=== PATIENT | female | born 1950 | race Caucasian/White ===

== ENCOUNTER 2020-03-06 06:25 | Day surgery (SDC) | payer MEDICARE, BC ==
[~2020-03-06] VITALS: Ht 162.6 cm; Wt 79.5 kg
[2020-03-06 07:03] LABS: APTT 34.7 SECONDS (22.8-39.4); INR 1.1 (0.85-1.17); PROTIME 14.1 SECONDS (11.6-15.0)
[2020-03-06 07:08] LABS: HEMOGLOBIN 13.7 g/dL (12-16); MCH 29.9 pg (26.0-34.0); MCHC 32.6 g/dL (31.0-37.0); MCV 91.7 fL (80.0-100.0); MEAN PLATELET VOLUME 10.2 fL (7.4-10.4); RBC 4.58 10x6/uL (4.00-5.40); RDW 14.8 % (11.5-14.5); WBC 13.3 10x3/uL (4.8-10.8)
[2020-03-06 08:16] VITALS: Ht 162.6 cm; Wt 79.5 kg
[2020-03-06] MEDS ORDERED: ALENDRONAT70 MG/75 M PO (08:25)
[2020-03-06] MEDS ORDERED: ABILIFY2 MG PO (08:26)
[2020-03-06] MEDS ORDERED: BAYER CHEWABLE81 MG PO (08:26)
[2020-03-06] MEDS ORDERED: LIPITOR80 MG PO (08:26)
[2020-03-06] MEDS ORDERED: CALTRATE+D3 PL1 EACH PO (08:27)
[2020-03-06] MEDS ORDERED: BUSPAR5 MG PO (08:27)
[2020-03-06] MEDS ORDERED: CENTRUM SILVER1 EAC3 PO (08:27)
[2020-03-06] MEDS ORDERED: CLARITIN 10 MG10 MG PO (08:27)
[2020-03-06] MEDS ORDERED: BENADRYL25 MG PO (08:27)
[2020-03-06] MEDS ORDERED: GYNE-LOTRIMIN-745 GM VG (08:28)
[2020-03-06] MEDS ORDERED: COUMADIN4 MG PO (08:28)
[2020-03-06] MEDS ORDERED: CARDIZEM120 MG PO (08:29)
[2020-03-06] MEDS ORDERED: ATIVAN1 MG PO (08:29)
[2020-03-06] MEDS ORDERED: MECLIZINE HCL12.5 MG PO (08:29)
[2020-03-06] MEDS ORDERED: METOPROLOL TART50 MG PO (08:30)
[2020-03-06] MEDS ORDERED: OMEPRAZOLE20 M1 PO (08:30)
[2020-03-06] MEDS ORDERED: TRAZODONE HCL150 MG PO (08:30)
[2020-03-06] MEDS ORDERED: VITAMIN D1000 UNIT PO (08:31)
[2020-03-06] MEDS ORDERED: VIIBRYD10 MG PO (08:31)
--- NOTE | 2020-03-06 12:56 | NUR ---
1210 IV REMOVED AND INSTRUCTIONS GIVEN. 1220 D/C HOME
== END 2020-03-06 12:20 | disposition home or self-care (01) ==
LOC: D.OPS 06:25
PROVIDERS: Anesthesiology; ATTEND Surgery
DX: D12.6 Benign neoplasm of colon, unspecified (principal); I10 Essential (primary) hypertension; I48.0 Paroxysmal atrial fibrillation

== ENCOUNTER → 2020-04-29 20:05 | Outpatient (CLI) | payer MEDICARE, BC ==
[2020-03-06 08:16] VITALS: BMI 30.1
[~2020-04-29 20:05] MED LIST: ABILIFY2 MG PO; ALENDRONAT70 MG/75 M PO; ATIVAN1 MG PO; BAYER CHEWABLE81 MG PO; BENADRYL25 MG PO; BUSPAR5 MG PO; CALTRATE+D3 PL1 EACH PO; CARDIZEM120 MG PO; CENTRUM SILVER1 EAC3 PO; CLARITIN 10 MG10 MG PO; COUMADIN4 MG PO; GAS-X125 M1 PO; GYNE-LOTRIMIN-745 GM VG; LIPITOR80 MG PO; LOVENOX120 MG/0.8 SC; MECLIZINE HCL12.5 MG PO; METOPROLOL TART50 MG PO; NYSTATIN15 GM TOPICAL; OMEPRAZOLE20 M1 PO; TRAZODONE HCL150 MG PO; VIIBRYD10 MG PO; VITAMIN D1000 UNIT PO
== END | disposition home or self-care (01) ==
LOC: D.LABREF 20:05
PROVIDERS: ATTEND Nurse Practitioner
DX: Z20.828 Contact with and (suspected) exposure to other viral communicable diseases (principal)

== ENCOUNTER 2020-05-01 07:30 | Inpatient (IN) | payer MEDICARE, BC ==
[~2020-05-01] VITALS: Ht 162.6 cm; Wt 80.3 kg
[2020-05-01] VITALS (11 sets, daily range): BP systolic 125–150; BP diastolic 60–86; BMI 30.6
--- NOTE | ~2020-05-01 | HEMODYNAMI ---
PATIENT:DEXTER SO MEDICAL RECORD: [id number] : 48 LOCATION:[id number] ADMISSION DATE: 05/01/20 Generatedon:05/07/202011:15 Patient name: DEXTER SO Patient #: [id number] SSN: [id number] : 1950 Date of study: 05/07/2020 Page: Of Hemodynamic Procedure Report Patient Data Patient Demographics Procedure consent was obtained First Name: DEXTER Gender: Female Last Name: SARAY : 1950 Patient #: [id number] Age: 69 year(s) Race: Unknown SSN: [id number] Additional ID: [id number] Contact details [address]: [address] [place] [address] circle State: [place] City: [place] Zip code: [address] Past Medical History Allergies Allergen Reaction Date Comments Reported Other allergy 05/07/2020 PCN, Sulfa,Codeine, morphine, tramadol Admission Admission Data Admission Date: 05/01/2020 Admission Time: 7:30 Arrival Date: 05/07/2020 Arrival Time: 0:00 Admit Source: Other Insurance Payor: Medicare Room #: D.2227 [facility] #: [id number] Height (in.): 63.78 BSA: 1.85 (m2) Height (cm.): 162 BMI: 30.48 (kg/m2) Weight (lbs.): 176.37 Weight (kg.): 80 Lab Results Lab Result Date: 05/07/2020 Lab Result Time: 0:00 Biochemistry Name Units Result Min Max BUN mg/dl 6 -*(----)-- 7 18 Creatinine mg/dl 1 --(--*-)-- 0.6 1.3 eGFR ml/min 58 *-(----)-- 90 120 NONAFRICAN CBC Name Units Result Min Max Hemoglobin g/dl 11 *-(----)-- 13.5 17.5 Procedure Procedure Types Cath Procedure Diagnostic Procedure [facility] w/Coronaries Sedation Charges Moderate Sedation up to 30 minutes Procedure Description Procedure Date Procedure Date: 05/07/2020 Procedure Start Time: 10:42 Procedure End Time: 11:13 Procedure Staff Name Function Lenny Reynaga MD Performing Physician Estrellita Gupta RT Monitor Paz Willoughby RT Scrub Brent Reno RN Nurse Procedure Data Cath Procedure Fluoroscopy Diagnostic fluoroscopy Total fluoroscopy Time: time: 11.8 min 11.8 min Diagnostic fluoroscopy Total fluoroscopy dose: dose: 1043 mGy 1043 mGy Contrast Material Contrast Material Type Amount (ml) Isovue 300 115 Entry Location Entry Primary Successful Side Size Upsize Upsize Entry Closure Jones ccessful Closure Location (Fr) 1 (Fr) 2 (Fr) Remarks Device Remarks Radial Right 6 Fr Mechanical artery Short Compression Femoral Right 5 Fr Exoseal artery Estimated blood loss: 10 ml Diagnostic catheters Device Type Used For End Catheter Placement DIAGNOSTIC Dodge 110cm 5 Procedure Fr catheter ([id number]) DIAGNOSTIC AR MOD 5Fr Procedure Catheter ([id number]) DIAGNOSTIC AR2 MOD 5 Fr Procedure catheter ([id number]) DIAGNOSTIC JR 4 5Fr Procedure catheter ([id number]) DIAGNOSTIC AR2 MOD 5 Fr Procedure catheter ([id number]) Procedure Complications No complications Procedure Medications Medication Administration Route Dosage 0.9% NaCl I.V. 100 ml/hr Oxygen NC 4 l/min Heparin Flush Bag added to field 2 bags (1000units/500ml NS) Lidocaine 2% added to field 20 Radial Cocktail added to field 1 syringe (Verapamil 2mg/Nitro 400mcg/Heparin 1500units) Versed I.V. 1 mg Fentanyl I.V. 50 mcg Radial Cocktail I.A. 1 syringe (Verapamil 2mg/Nitro 400mcg/Heparin 1500units) Fentanyl I.V. 25 mcg Versed I.V. 0.5 mg Versed I.V. 0.5 mg Fentanyl I.V. 25 mcg Hemodynamics Rest BSA: 1.85 (m2) HGB: 11 (g/dl) O2 Consumption: Estimated: 188.24 (ml/min) O2 Cons umption indexed: Estimated:101.75 (ml/min/m) Heart Rate: 95 (bpm) Pressure Samples Time Site Value (mmHg) Purpose Heart Use Rate(bpm) 10:51 LV 98/19,19 Snapshot 91 10:52 AO 100/35(73) Pullback 92 Gradients Valve Time Site Site 2 Mean SEP/DFP Peak To Heart Use 1 (mmHg) (sec/min) Peak Rate (mmHg) (bpm) Aortic 10:52 LV AO 6 21 92 100/35(73) Calculations Valve P-P Mean Valve Index Valve Source Name Gradient Area Flow (cm2) Aortic 6 6 Snapshots Pre Cath Intra NCS Post Cath Vital Signs Time Heart Resp SPO2 etCO2 NIBP (mmHg) Rhythm Pain Sedation Rate (ipm) (%) (mmHg) Status Level (bpm) 10:32:00 98 33 98 0 150/75(102) NSR 0 (11) 10(A) , No pain 10:35:57 94 23 98 0 144/73(106) NSR 0 (11) 10(A) , No pain 10:40:32 93 31 98 0 144/72(94) NSR 0 (11) 10(A) , No pain 10:44:25 95 26 96 0 137/77(104) NSR 0 (11) 10(A) , No pain 10:48:27 94 31 96 0 133/61(86) NSR 0 (11) 10(A) , No pain 10:52:21 103 44 97 0 105/65(83) NSR 0 (11) 10(A) , No pain 10:56:49 91 31 97 0 129/62(90) NSR 0 (11) 9(A) , No pain 11:00:44 90 31 97 0 132/72(96) NSR 0 (11) 9(A) , No pain 11:04:42 90 28 98 0 141/70(101) NSR 0 (11) 9(A) , No pain 11:09:14 89 30 97 0 135/71(100) NSR 0 (11) 10(A) , No pain 11:13:10 87 27 97 0 134/71(91) NSR 0 (11) 10(A) , No pain Medications Time Medication Route Dose Verified Delivered Reason Notes Effectiveness by by 10:30:49 0.9% NaCl I.V. 100 Brent Brent Per ml/hr Shadia ley RN RN 10:31:11 Oxygen NC 4 l/min Brent Brent for low 02 Shadia singh RN RN 10:31:23 Heparin Flush added 2 bags Brent Brent used for Bag to Lorigan Lorigan procedure (1000units/500ml field RN RN NS) 10:31:37 Lidocaine 2% added 20ml Brent Brent for local to vial Lorigan Lorigan anesthetic RN RN 10:31:49 Radial Cocktail added 1 Brent Brent used for (Verapamil to syringe Lorigan Lorigan procedure 2mg/Nitro RN RN 400mcg/Heparin 1500units) 10:36:07 Versed I.V. 1 mg Brent Brent for sedation Shadia Reno RN RN 10:36:16 Fentanyl I.V. 50 mcg Rbent Brent for sedation Shadia Reno RN RN 10:43:20 Radial Cocktail I.A. 1 Brent Lenny for (Verapamil syringe Lorigan Juhi vasodilation 2mg/Nitro SILVANO BARAKAT 400mcg/Heparin 1500units) 10:43:28 Fentanyl I.V. 25 mcg Brent Brent for sedation Shadia Reno RN RN 10:43:36 Versed I.V. 0.5 mg Brent Brent for sedation Shadia Reno RN RN 11:03:39 Versed I.V. 0.5 mg Brent Brent for sedation Shadia Reno RN RN 11:03:51 Fentanyl I.V. 25 mcg Brent Brent for sedation Shadia Reno RN tourist home keeper Log Time Note 9:59:57 Informed consent obtained and on chart 10:00:13 Procedure Status Urgent Heart Cath (IP). 10:00:14 Time tracking: Regular hours (M-F 7:00 - 5:00) 10:00:18 Plan of Care:Hemodynamics will remain stable., Cardiac rhythm will remain stable., Comfort level will be maintained., Respiratory function will remain adequate., Patient/ family verbilizes understanding of procedure., Procedure tolerated without complication., Recovers from procedure without complications.. 10:04:23 Paz JOHNSON(R) sent for patient. Start room use. 10:07:11 Arrival Date: 05/07/2020 12:00:00 AM 10:07:37 Admit Source: Other 10:07:44 Insurance Payor : Medicare 10:07:49 Patient Height : 63.78 inches 10:07:52 Patient Weight : 176.37 lbs 10:08:49 Lab Result : BUN 6 mg/dl 10:08:49 Lab Result : eGFR NONAFRICAN 58 ml/min 10:08:49 Lab Result : Hemoglobin 11 g/dl 10::49 Lab Result : Creatinine 1 mg/dl 10:30:31 Vital chart was started 10:30:49 0.9% NaCl 100 ml/hr I.V. was administered by Brent Reno RN; Per physician; Verbal order read back and verified. 10:31:11 Oxygen 4 l/min NC was administered by Brent Reno RN; for low 02 sats; Verbal order read back and verified. 10:31:23 Heparin Flush Bag (1000units/500ml NS) 2 bags added to field was administered by Brent Reno RN; used for procedure; Verbal order read back and verified. 10:31:37 Lidocaine 2% 20ml vial added to field was administered by Brent Reno RN; for local anesthetic; Verbal order read back and verified. 10:31:49 Radial Cocktail (Verapamil 2mg/Nitro 400mcg/Heparin 1500units) 1 syringe added to field was administered by Brent Reno RN; used for procedure; Verbal order read back and verified. 10:33:32 Patient received from Med/Surg to CCL 2 Alert and oriented. Tansferred to table in Supine position. 10:33:34 Warm blankets applied, and azam hugger turned on for patient comfort. 10:33:35 Correct patient and procedure confirmed by team. 10:33:36 Baseline sample Acquired. 10:33:36 ECG and BP/O2 sat monitors applied to patient. 10:33:44 Rhythm: sinus tachycardia 10:33:46 Full Disclosure recording started 10:33:54 H&P Date Dictated: 05/07/2020 Within 30 days and on chart.. 10:33:56 Pre-procedure instructions explained to patient. 10:33:58 Family in patients room. 10:34:00 Patient NPO since Midnight. 10:34:37 Patient allergic to Other allergyPCN, Sulfa,Codeine, morphine, tramadol 10:34:40 Is the patient allergic to Iodine/contrast media? No. 10:34:41 Was the patient premedicated? Yes 10:34:42 Is patient on blood thinner?Yes 10:34:48 ACC The patient was administered the following blood thiners within the last 24 hours: ACCPlavix 10:34:50 Patient diabetic? No. 10:34:55 Snore? Yes 10:35:00 Sleep apnea? Yes 10:35:05 Patient pain scale 0/10 ?. 10:35:14 IV patent on arrival in left forearm with 0.9% NaCl at [facility]. 10:35:18 Lab results completed and on chart. 10:35:23 Right Radial & Right Groin area was prepped with chlora-prep and draped in sterile fashion 10:35:24 Alarms reviewed by R. N. 10:35:25 Sharps counted by scrub and verified by R.N. 10:35:26 Physician arrived 10:35:27 --------ALL STOP TIME OUT------ 10:35:29 Final Timeout: patient, procedure, and site verified with staff and physician. All members of the team are in agreement. 10:35:44 Right Radial & Right Groin site verified by team. 10:35:48 Fire Safety Assessment: A--An alcohol-based skin anteseptic being used preoperatively., C--Open oxygen or nitrous oxide is being used., D--An ESU, laser, or fiber-optic light is being used. 10:35:52 Physical assessment completed. ASA score P 2 - A patient with mild systemic disease as per Lenny Reynaga MD. 10:35:55 2) 60-89 Mildly reduced kidney function, and other findings (as for stage 1) point to kidney disease. 10:35:59 Maximum allowable contrast dose (3.7 X eGFR X 0.75)160 ml. 10:36:04 Sedation plan: IV Moderate Sedation Medication:Versed, Fentanyl 10:36:07 Versed 1 mg I.V. was administered by Brent Reno RN; for sedation; Verbal order read back and verified. 10:36:09 Use device set Radial Dx or PCI 10:36:16 Fentanyl 50 mcg I.V. was administered by Brent Reno RN; for sedation; Verbal order read back and verified. 10:39:58 Zero performed for pressure channel P1 10:40:01 ACIST Syringe (93201) opened to sterile field. 10:40:01 Medline Cath Pack ([id number]) opened to sterile field. 10:40:02 Bag Decanter () opened to sterile field. 10:40:02 ACIST Hand Control (53870) opened to sterile field. 10:40:03 ACIST Manifold (10904) opened to sterile field. 10:40:04 MBrace Wrist Support ([id number]) opened to sterile field. 10:40:07 EMERALD Guide Wire (782-946) opened to sterile field. 10:40:07 SHEATH 6FR RAIN (1614808) opened to sterile field. 10:40:48 Procedure started. 10:42:24 Local anesthetic to right radial artery with Lidocaine 2% by Lenny Reynaga MD.INITIAL ACCESS ONLY 10:43:05 A 6 Fr Short sheath was inserted into the Right Radial artery 10:43:20 Radial Cocktail (Verapamil 2mg/Nitro 400mcg/Heparin 1500units) 1 syringe I.A. was administered by Lenny Reynaga MD; for vasodilation; Verbal order read back and verified. 10:43:28 Fentanyl 25 mcg I.V. was administered by Brent Reno RN; for sedation; Verbal order read back and verified. 10:43:36 Versed 0.5 mg I.V. was administered by Brent Reno RN; for sedation; Verbal order read back and verified. 10:44:06 A DIAGNOSTIC Dodge 110cm 5 Fr catheter (277763) was advanced over the wire and used for Procedure. 10:46:23 LCA angiography performed. 10:47:34 Catheter removed. 10:48:16 A DIAGNOSTIC AR MOD 5Fr Catheter ([id number]) was advanced over the wire and used for Procedure. 10:52:53 LV angiography performed. 10:52:58 LV gram done using REGAN 10:53:04 EF : 55 % 10:53:05 Catheter removed. 10:53:29 A DIAGNOSTIC AR2 MOD 5 Fr catheter ([id number]) was advanced over the wire and used for Procedure. 10:56:11 Catheter removed. 10:56:30 unable to cannulate vessel 10:56:37 A DIAGNOSTIC JR 4 5Fr catheter ([id number]) was advanced over the wire and used for Procedure. 11:03:39 Versed 0.5 mg I.V. was administered by Brent Reno RN; for sedation; Verbal order read back and verified. 11:03:51 Fentanyl 25 mcg I.V. was administered by Brent Reno RN; for sedation; Verbal order read back and verified. 11:03:56 SHEATH 5FR [place] (OAF849) opened to sterile field. 11:04:03 Local anesthetic to right femoral artery with Lidocaine 2% by Lenny Reynaga MD.ADDITIONAL ACCESS 11:04:13 A 5 Fr sheath was inserted into the Right Femoral artery 11:05:21 A DIAGNOSTIC AR2 MOD 5 Fr catheter ([id number]) was advanced over the wire and used for Procedure. 11:06:25 RCA angiography performed. 11:07:11 Catheter removed. 11:07:29 Tegaderm 4 x 4 (1626W) opened to sterile field. 11:07:33 ZEPHYR REGULAR TR BAND (233328) opened to sterile field. 11:07:36 EXOSEAL 5Fr (EX500) opened to sterile field. 11:08:05 Sheath removed intact; hemostasis achieved with Exoseal to the Right Femoral artery. 11:08:14 Sheath removed intact; hemostasis achieved with Mechanical Compression to the Right Radial artery. 11:08:17 Procedure ended.(Physican Out) 11:09:04 Fluoroscopy time 11.80 minutes. 11:09:07 Fluoroscopy dose: 1043 mGy 11:09:07 Flurop Dose total: 1043 11:09:12 Dose Area Product 82472 mGy/cm. 11:09:17 Contrast amount:Isovue 300 115ml. 11:09:21 Maximum allowable dose exceeded? No. 11:09:23 Insertion/operative site no bleeding no hematoma. 11:09:27 Post-op/insertion site Right Femoral artery dressed using a 4 x 4 and Tegaderm. 11:09:31 Mittie band inflated with 10cc of air. 11:09:35 Post Procedure Pulses reassessed and unchanged 11:09:49 Post-procedure physical assessment completed. ASA score P 2 - A patient with mild systemic disease as per Lenny Reynaga MD. 11:09:53 Post procedure rhythm: unchanged. 11:09:56 Estimated blood loss: 10 ml 11:09:58 Post procedure instruction explained to patient.Patient verbalizes understanding. 11:10:11 Procedure type changed to Cath procedure, Diagnostic procedure, LHC, LHC w/Coronaries, Sedation Charges, Moderate Sedation up to 30 minutes 11::13 Procedure and supply charges have been captured, reviewed, submitted and are correct. 11:13:23 Procedure Complication : No complications 11:13:27 Vital chart was stopped 11:13:34 [facility] Findings: mild to moderate CAD (<70%) 11:13:37 Operative report dictated upon procedure completion. 11:13:38 See physician's report for complete and final results. 11:13:43 Report given to Pre/Post Procedure Room. 11:13:48 Patient transfered to Pre/Post Procedure Room with Stretcher. 11:13:51 Procedure ended. 11:13:51 Full Disclosure recording stopped 11:13:58 End room use (Document Last) 11:14:38 End room use (Document Last) Device Usage Item Name Manufacture Quantity Catalog Hospital Part Current Minima l Lot# / Number Charge Number Stock Stock Serial# Code ACIST Acist 1 49715 572945 969314 [id number] 20 Syringe Medical (75549) Systems Inc Medline Medline 1 [id number] 075136 66267 855102 5 Cath Pack ([id number]) Bag Microtek 1 697985 84909 271474 5 Decanter Medical Inc. () ACIST Hand Acist 1 99720 040120 544325 641300 5 Control Medical (09061) Systems Inc ACIST Acist 1 30270 926843 056954 630949 5 Manifold Medical (07846) Systems Inc MBrace Advanced 1 140-0250-00 681154 91608 453566 5 Wrist Vascular Support Dynamics ([id number]) EMERALD Cardinal 1 502-455 330050 657889 166514 5 Guide Wire Health (502455) SHEATH 6FR Cardinal 1 9587568 021604 1004993 948922 5 [facility] (7770720) DIAGNOSTIC Terumo 1 40-2398 504436 011458 664237 5 Dodge 110cm 5 Fr catheter (885495) DIAGNOSTIC Cardinal 1 015952V 492153 271256 773198 15 AR MOD 5Fr Health Catheter (863690A) DIAGNOSTIC Cardinal 2 810060T 068429 256206 689921 20 AR2 MOD 5 Health Fr catheter (237581H) DIAGNOSTIC Cardinal 1 162919Y 333513 347789 403960 5 JR 4 5Fr Health catheter (747054H) SHEATH 5FR Terumo 1 SSD248 278288 839090 368547 5 [place] (GRZ736) Tegaderm 4 3M 1 1626W 304617 925704 945456 5 x 4 (1626W) ZEPHYR Cardinal 1 037025 428303 9402446 632713 5 REGULAR TR Health BAND (901846) EXOSEAL 5Fr Cardinal 1 EX500 479702 351195 391862 10 (EX500) Health Signature Audit [place] Stage Time Signature Unsigned Intra-Procedure 05/07/2020 Estrellita Gupta 11:14:38 AM RT(R) Intra-Procedure 05/07/2020 Brent 11:15:12 AM Shadia RN Intra-Procedure 05/07/2020 Lenny Oakes 11:15:55 AM Jayant BARAKAT Signatures Performing Physician : Signature : Lenny Reynaga MD Date : Time : Monitor : Estrellita Gupta Signature : RT Date : Time : Nurse : Brent Lorigan Signature : RN Date : Time : [facility] [address] [place] [id number]
[~2020-05-01 07:30] MED LIST changes: -GAS-X125 M1 PO; -LOVENOX120 MG/0.8 SC; -NYSTATIN15 GM TOPICAL
[2020-05-01 08:02] LABS: BASOPHILS 0.2 % (0-2); EOSINOPHILS 0.8 % (0-7); HEMATOCRIT 39.9 % (36.0-48.0); HEMOGLOBIN 13.1 g/dL (12-16); IMMATURE GRANULOCYTES 0.8 % (0-5); LYMPHOCYTES 12.7 % (15-50); MCH 29.6 pg (26.0-34.0); MCHC 32.8 g/dL (31.0-37.0); MCV 90.3 fL (80.0-100.0); MEAN PLATELET VOLUME 9.8 fL (7.4-10.4); MONOCYTES 6.7 % (2-11); NEUTROPHILS 78.8 % (40-80); PLATELET COUNT 368 10x3/uL (130-400); RBC 4.42 10x6/uL (4.00-5.40); RDW 14.8 % (11.5-14.5); WBC 14.3 10x3/uL (4.8-10.8)
[2020-05-01 08:12] LABS: INR 1.05 (0.85-1.17); PROTIME 13.6 SECONDS (11.6-15.0)
[2020-05-01 08:14] LABS: ANION GAP 12.8 mmol/L (8-16); CALCIUM 9.3 mg/dL (8.5-10.1); CARBON DIOXIDE 25.8 mmol/L (21.0-32.0); CREATININE - SERUM 1.3 mg/dL (0.6-1.3); POTASSIUM - SERUM 3.6 mmol/L (3.5-5.1)
[2020-05-01] MEDS ORDERED: CENTRUM SILVER1 EAC3 PO (08:18)
[2020-05-01] MEDS ORDERED: LOVENOX120 MG/0.8 SC (08:21)
[2020-05-01] MEDS ORDERED: GAS-X125 M1 PO (08:24)
[2020-05-01] MEDS ORDERED: NYSTATIN15 GM TOPICAL (08:25)
--- NOTE | 2020-05-01 12:03 | NUR ---
COVID TEST PENDING FROM Aug SYD RECOMENDED TO PLACE IN ISOLATION UNTIL RESULTS ARE BACK. DUE TO PREVIOUS POSITIVE TEST AT [facility].
[2020-05-02] VITALS: BP 132/67
[2020-05-02 01:54] VITALS: BMI 30.4
[2020-05-02 04:00] VITALS: BP 134/57; BP 137/56
[2020-05-02 06:36] LABS: HEMATOCRIT 35.1 % (36.0-48.0); HEMOGLOBIN 11.3 g/dL (12-16); MCH 29.2 pg (26.0-34.0); MCHC 32.2 g/dL (31.0-37.0); MCV 90.7 fL (80.0-100.0); PLATELET COUNT 296 10x3/uL (130-400); RBC 3.87 10x6/uL (4.00-5.40); RDW 14.9 % (11.5-14.5); WBC 21.3 10x3/uL (4.8-10.8)
[2020-05-02 07:18] LABS: ALBUMIN 2.4 g/dL (3.4-5.0); ALKALINE PHOSPHATASE 114 U/L (30-120); ALT (SGPT) 22 U/L (10-68); BILIRUBIN - TOTAL 0.28 mg/dL (0.2-1.3); CALC OSMOLALITY 275 mosm/kg (275-300); CALCIUM 8.4 mg/dL (8.5-10.1); CARBON DIOXIDE 21.9 mmol/L (21.0-32.0); CHLORIDE - SERUM 105 mmol/L (98-107); CREATININE - SERUM 1.2 mg/dL (0.6-1.3); GLUCOSE 124 mg/dL (74-106); MAGNESIUM - SERUM 1.8 mg/dL (1.8-2.4); PHOSPHOROUS 3.2 mg/dL (2.5-4.9); POTASSIUM - SERUM 3.9 mmol/L (3.5-5.1); PROTEIN - SERUM 6.3 g/dL (6.4-8.2); SODIUM 138 mmol/L (136-145); TROPONIN-I < 0.017 ng/mL (0.000-0.060); UREA NITROGEN 11 mg/dL (7-18); eGFR NON AFRICAN AMERICAN 47 mL/min (90-120)
[2020-05-02 08:12] LABS: LYMPHOCYTES 4 % (15-50); MONOCYTES 5 % (2-11); NEUTROPHILS 91 % (40-80); PLATELET ESTIMATE NORMAL
[2020-05-02 08:33] VITALS: BP 151/79
--- NOTE | 2020-05-02 10:44 | NUR ---
ASSESSMENT PER FLOW SHEET. PATIENT IS WITHOUT DISTRESS. COMPLAINS OF PAIN 4/10 TO ABD ,ICE CRUSHER USE INSTRUCTED.LAP SITES TO ABDOMEN CDI. INCISION TO LOWER ABD DSG INTACT AND CLEAN. PRINCE TO GRAVITY WITH GREENISH COLORED URINE IN BAG. FALL PREVENTION IN PLACE WITH BED ALARM.SCD'S ON AND WORKING.IS INSTRUCTED WITH PATIENT AND FAMILY. CALL LIGHT IN REACH. ICE CHIPS PROVIDED
[2020-05-02 12:33] VITALS: BP 151/62
[2020-05-02 13:28] VITALS: BMI 30.4
--- NOTE | 2020-05-02 15:07 | NUR ---
HAS REMAINED WITHOUT NEEDS. NO COMPLAINTS OF NAUSEA. ATTEMPTING TO USE BEDPAN FOR BM.
--- NOTE | 2020-05-02 15:39 | NUR ---
SMALL BM,BROWN IN COLOR. BED CHANGED AND PATIENT REPOSITIONED
[2020-05-02 16:31] VITALS: Ht 162.6 cm; Wt 80.3 kg
[2020-05-02 17:26] VITALS: BP 145/69
--- NOTE | 2020-05-02 20:00 | NUR ---
PT LYING IN BED WITHOUT DISTRESS, ORIENTED TO SELF ONLY. PT AGITATED AND DOES NOT KNOW WHERE SHE IS AT. EXPLAINED MULTIPLE TIMES PT WAS IN HOSPITAL AFTER HAVING SURGERY. PT KEEPS JUMPING AROUND TO DIFFERENT SUBJECTS. STATES "IM GOING TO [facility] YOU ALL FOR PURGERY" WHILE TRYING TO GET HER VITALS. PT KEEPS STATING THE NAME ON HER WRISTBAND IS NOT RIGHT, IT STATES DEXTER SO BUT PT IS UPSET IT HAS SOM BREVING ON IT HER DOCTOR STATING SHE DOES NOT KNOW HIM AND THAT IS NOT HER DR. SHE WAS ALSO UPSET BY MY NAME BEING ON HER BOARD UNDERNEATH NURSE. SHE STATES THAT IS NOT HER NAME. TRIED TO EXPLAIN TO PT THAT IT IS MY NAME BUT SHE WOULD NOT LISTEN AND BECAME INCREASINGLY AGITATED. TRIED TO CALL DAUGHTER BUT SHE DID NOT ANSWER. AT THIS TIME PT IS STAYING IN BED AND FOLLOWING COMMANDS, BUT IS VERY CONFUSED.
[2020-05-03] VITALS: BP 161/66
[2020-05-03 04:00] VITALS: BP 160/71
[2020-05-03 08:34] VITALS: BP 173/77
--- NOTE | 2020-05-03 10:53 | NUR ---
CALL BACK TO DAUGHTER CHRISTINE. MESSAGE LEFT FOR HER TO CALL BACK
--- NOTE | 2020-05-03 11:07 | NUR ---
CALL BACK FROM CHRISTINE. PASSWORD CONFIRMED.PATIENT UPDATE GIVEN
--- NOTE | 2020-05-03 11:30 | NUR ---
STILL VERY CONFUSED AND AGITATED. REFUSES LABS AND PRINCE TO BE MTAKEN OUT AT THIS TIME. DAUGHTER WILL BE HERE AT [phone] TODAY.
--- NOTE | 2020-05-03 11:33 | NUR ---
PAGE TO MICHEAL MCKINNON APN. TO GIVE PATIENT STATUS UPDATE. SHE IS BECOMING MORE CONFUSED AND AGITATED.
--- NOTE | 2020-05-03 14:00 | NUR ---
PATIENT VERY SAD AND CRYING. STATES SHE IS SORRY.FAMILY AT BEDSIDE.PRINCE DCD WITH 1000 CC OF GREENISH COLORED URINE IN BAG. PATIENT AGREES TO TAKE PO MEDS NOW.
--- NOTE | 2020-05-03 16:10 | NUR ---
MORE ALERT NOW AND LAUGHING. PATIENT HAS BEEN PASSING GAS,BUT NO STOOL TODAY. MEDS ORDERED FOR PAIN TO LOWER ABD 7/10 PER MAR ORDERED. JUST VOIDED 150 CC OF URINE IN BEDPAN.
[2020-05-03 17:22] VITALS: BP 136/61
--- NOTE | 2020-05-03 19:00 | NUR ---
BEDSIDE REPORT RECEIVED AND CARE OF PT ASSUMED. PT LYING IN SUPINE POSITION WATCHING TV. IV TO RIGHT FA PATENT WITH NS INFUSING AT 125 ML/HR. IV TO LEFT HAND SALINE LOCKED. DRESSING ON LOWER ABDOMEN CLEAN AND DRY. WILL MONITOR FOR NEEDS.
--- NOTE | 2020-05-03 20:15 | NUR ---
PT STARTING TO GET CONFUSED...WANTING TO GO TO THE HOSPITAL. DIFFICULT TO REORIENT. BED ALARM IN USE.
--- NOTE | 2020-05-03 20:32 | NUR ---
HS MEDICATIONS GIVEN. WILL CONTINUE TO MONITOR CLOSELY.
[2020-05-03 21:08] VITALS: BP 172/58
--- NOTE | 2020-05-04 00:31 | NUR ---
BED ALARM SOUNDING...PT SCOOTING TO END OF BED TO SLIP BETWEEN RAILS. VERY SOB...GASPING FOR AIR. PULLED PT BACK UP IN BED AND TRIED TO REORIENT TO ASK FOR ASSISTANCE. PLACED BEDPAN UNDER PT. CHANGED ALL BEDDING AND GOWN DUE TO PREVIOUS INCONTINENCE. POSITIONED FOR COMFORT. BED ALARM IN USE FOR SAFETY.
--- NOTE | 2020-05-04 03:10 | NUR ---
CHANGED BEDPADS AND CLEANED PT DUE TO INCONTINENCE OF BOWEL AND URINE. POSITIONED FOR COMFORT. PROVIDED WITH WARM SHEET AND BLANKET. WILL CONTINUE TO MONITOR FOR NEEDS.
[2020-05-04 05:57] VITALS: BP 144/63
--- NOTE | 2020-05-04 07:22 | NUR ---
IV TO RIGHT FA RED AND LEAKING. REMOVED WITH CATHETER TIP INTACT. IV TO RIGHT HAND LEAKING WHEN FLUSHED. REMOVED WITH CATHETER TIP INTACT. WILL ATTEMPT TO RE-SITE.
[2020-05-04 07:44] LABS: CREATININE - SERUM 0.8 mg/dL (0.6-1.3)
--- NOTE | 2020-05-04 08:12 | NUR ---
0700 BEDSIDE REPORT RECEIVED ASSESSMENT COMPLETE VOICES NO C/O PAIN ABDOMINIAL INCISION SITE DRESING CDI
[2020-05-04 09:27] VITALS: BP 143/58
[2020-05-04 12:00] VITALS: BP 140/65
--- NOTE | 2020-05-04 12:28 | NUR ---
1225 O2 SAT DROPPED TO 89 CALLED RT TO EVALUATE O2 INCREASED TO 4L PER RT 02 SAT UP TO 92%
--- NOTE | 2020-05-04 12:52 | NUR ---
[address] HOOPER NEW ORDERS NOTED CONSULTED DR PEREZ, PULMONARY ORDERED CXR
--- NOTE | 2020-05-04 12:55 | NUR ---
1258 ENCOURAGING IS USE AND INSTRUCTED HER HOW TO PULL HERSELF UP IN BED
[2020-05-04 18:06] VITALS: BP 143/65
--- NOTE | 2020-05-04 19:00 | NUR ---
BEDSIDE REPORT RECEIVED AND CARE OF PT ASSUMED. PT LYING IN SUPINE POSITION WITH EYES CLOSED. IV TO LEFT WRIST PATENT WITH NS INFUSING AT 100 ML/HR. WILL MONITOR FOR NEEDS.
--- NOTE | 2020-05-04 20:09 | NUR ---
HS MEDICATIONS GIVEN TO INCLUDE NORCO PO FOR C/O PAIN. WILL MONITOR FOR EFFECTIVENESS.
--- NOTE | 2020-05-04 20:20 | NUR ---
CHANGED ALL BEDDING AND GOWN DUE TO INCONTINENCE OF URINE. POSITIONED ONTO LEFT SIDE PROPPED WITH PILLOW, BUTTOCKS BECOMING RED. GAURAV'S PASTE APPLIED TO COCCYX / BUTTOCKS. WILL CONTINUE TO MONITOR FOR NEEDS.
--- NOTE | 2020-05-04 20:35 | NUR ---
GAVE REPORT TO DAUGHTER IN [place]. SHE WILL BE HERE IN AM.
--- NOTE | 2020-05-04 21:12 | NUR ---
K+ LEVEL 3.4 AT RE-CHECK REQUIRING COVERAGE WITH 40 MEQ PO K-DUR PER THE ELECTROLYTE PROTOCOL. WILL RE-CHECK WITH AM LABS.
[2020-05-04 21:18] VITALS: BP 142/86
--- NOTE | 2020-05-04 22:44 | NUR ---
PT HAD EPISODE OF VERY SOB AND WHEEZING. SHE WAS VERY ANXIOUS. PULLED PT UP IN BED AND CALLED RT. AFTER RT MAXINE, PAGED DR PEREZ AND RECEIVED ORDER FOR DUONEB RQ6, ALBUTERAL Q2P, AND PLACE ON BIPAP IF HAS ANOTHER EPISODE OF SOB. PT PLACED ON HIGH FLOW NC AND IS RECEIVING UPDRAFT TX AT THIS TIME. SHE IS MORE RELAXED AND SPO2 UP TO 94%. WILL CONTINUE TO MONITOR CLOSELY.
[2020-05-05 01:23] VITALS: BP 121/52
[2020-05-05 05:08] VITALS: BP 155/73
[2020-05-05 07:03] LABS: BASOPHILS 0.4 % (0-2); EOSINOPHILS 1.5 % (0-7); HEMATOCRIT 33.8 % (36.0-48.0); HEMOGLOBIN 10.6 g/dL (12-16); IMMATURE GRANULOCYTES 1.1 % (0-5); LYMPHOCYTES 8.1 % (15-50); MCH 28.3 pg (26.0-34.0); MCHC 31.4 g/dL (31.0-37.0); MCV 90.1 fL (80.0-100.0); MONOCYTES 6.8 % (2-11); NEUTROPHILS 82.1 % (40-80); PLATELET COUNT 258 10x3/uL (130-400); RBC 3.75 10x6/uL (4.00-5.40); RDW 14.9 % (11.5-14.5); WBC 14.2 10x3/uL (4.8-10.8)
[2020-05-05 07:44] LABS: ALBUMIN 2.1 g/dL (3.4-5.0); ANION GAP 13.1 mmol/L (8-16); BILIRUBIN - TOTAL 0.33 mg/dL (0.2-1.3); CALCIUM 8.4 mg/dL (8.5-10.1); CARBON DIOXIDE 21.7 mmol/L (21.0-32.0); CREATININE - SERUM 0.9 mg/dL (0.6-1.3); PHOSPHOROUS 2.1 mg/dL (2.5-4.9); POTASSIUM - SERUM 3.8 mmol/L (3.5-5.1); PROTEIN - SERUM 6.2 g/dL (6.4-8.2)
[2020-05-05 07:45] LABS: TROPONIN-I 0.294 ng/mL (0.000-0.060)
[2020-05-05 08:22] VITALS: BP 147/72
[2020-05-05 12:07] VITALS: BP 145/74
[2020-05-05 15:00] LABS: CKMB 2.2 U/L (0.0-3.6); CREATINE KINASE 104 UL (21-215)
[2020-05-05 15:09] LABS: TROPONIN-I 0.279 ng/mL (0.000-0.060)
--- NOTE | 2020-05-05 15:10 | NUR ---
CALLED DR. PEREZ DUE TO PATIENTS MENTAL STATUS CHANGE. DR. PEREZ GAVE ORDERS TO RAISE HOB TO 45 DEGREES, AND GET A CT SCAN OF THE HEAD WITHOUT CONTRAST.
[2020-05-05 17:48] VITALS: BP 142/73
--- NOTE | 2020-05-05 19:00 | NUR ---
BEDSIDE REPORT RECEIVED AND CARE OF PT ASSUMED. PT LYING IN SUPINE POSITION WITH EYES CLOSED. IV TO LEFT WRIST INFILTRATED...REMOVED BY DAY SHIFT NURSE.
--- NOTE | 2020-05-05 19:28 | NUR ---
PATIENT TILE LAYER LIGHT COMPLAINING ABOUT IV. REDDNESS AND TENDERNESS PRESENT. IV CATH REMOVED. CATH TIP INTACT.
--- NOTE | 2020-05-05 20:00 | NUR ---
PT BATHED AND ALL LINEN AND GOWN CHANGED DUE TO INCONTINENCE OF URINE.
--- NOTE | 2020-05-05 20:36 | NUR ---
HS MEDICATIONS GIVEN. WILL CONTINUE TO MONITOR FOR NEEDS.
[2020-05-05 20:44] LABS: CKMB 7.2 U/L (0.0-3.6); CREATINE KINASE 119 UL (21-215)
[2020-05-05 20:47] LABS: TROPONIN-I 1.442 ng/mL (0.000-0.060)
[2020-05-05 21:48] VITALS: BP 186/87
--- NOTE | 2020-05-05 22:30 | NUR ---
PLACED ORDER FOR VASCULAR ACCESS NURSE TO GAIN IV ACCESS IN AM.
--- NOTE | 2020-05-06 00:04 | NUR ---
PERFORMED IN AND OUT CATH TO COLLECT URINE FOR ORDERED STUDIES. DELIVERED TO LAB.
[2020-05-06 00:37] LABS: BILIRUBIN NEGATIVE (NEGATIVE); KETONE SMALL mg/dL (NEGATIVE); NITRITE NEGATIVE (NEGATIVE); UROBILINOGEN NORMAL mg/dL (< 2)
[2020-05-06 01:34] VITALS: BP 153/67
[2020-05-06 02:43] LABS: BASOPHILS 0.3 % (0-2); EOSINOPHILS 2.1 % (0-7); HEMATOCRIT 33.8 % (36.0-48.0); IMMATURE GRANULOCYTES 1.3 % (0-5); MCH 29.3 pg (26.0-34.0); MCHC 32.5 g/dL (31.0-37.0); MCV 89.9 fL (80.0-100.0); MEAN PLATELET VOLUME 9.7 fL (7.4-10.4); MONOCYTES 6.8 % (2-11); NEUTROPHILS 82.5 % (40-80); PLATELET COUNT 219 10x3/uL (130-400); RBC 3.76 10x6/uL (4.00-5.40); RDW 14.8 % (11.5-14.5)
[2020-05-06 03:06] LABS: CALC OSMOLALITY 273 mosm/kg (275-300); CALCIUM 8.5 mg/dL (8.5-10.1); CARBON DIOXIDE 26.5 mmol/L (21.0-32.0); CHLORIDE - SERUM 103 mmol/L (98-107); CREATINE KINASE 156 UL (21-215); GLUCOSE 98 mg/dL (74-106); MAGNESIUM - SERUM 1.8 mg/dL (1.8-2.4); POTASSIUM - SERUM 3.6 mmol/L (3.5-5.1); SODIUM 138 mmol/L (136-145); UREA NITROGEN 6 mg/dL (7-18); eGFR NON AFRICAN AMERICAN 58 mL/min (90-120)
[2020-05-06 03:07] LABS: TROPONIN-I 3.054 ng/mL (0.000-0.060)
--- NOTE | 2020-05-06 03:32 | NUR ---
PAGED DR DISLA FOR ELEVATED CKMB AND TROP. ORDER TO PLACE TELEMETRY ON PT. NO ORDERS TO REPEAT LABS. WILL CONTINUE TO MONITOR IVA.
--- NOTE | 2020-05-06 03:46 | NUR ---
PLACED TELEMETRY ON PT PER ORDER. READING 86 SR AT THIS START.
[2020-05-06 05:13] VITALS: BP 132/95
--- NOTE | 2020-05-06 07:15 | NUR ---
RECEIVED BEDSIDE REPORT. PT LAYING IN BED, A & O X2, DISORIENTATED TO TIME AND SITUATION, OCCASSIONALY DISORINTATED TO PERSON AND PLACE. IV OUT, MESSEGE LEFT WITH VASCULAR ACCESS X3. O2 SAT 97% VIA HFNC 7L, BIPAP PRN. TELEMETRY IN PLACE, 85 SR. BRUISES ON BILAT UPPER EXTREMITIES. PT DAUGHTER AT BEDSIDE. EDUCATED PT AND FAMILY ON VASCULAR ACCESS CONSULTED ON INITIATING IV ACCESS, EDUCATED PT AND FAMILY ON CL AND NEEDS, VERBALIZED UNDERSTANDING. BED LOW, RAILS X3, BED ALARM ON. CL IN REACH, WILL CONTINUE TO MONITOR.
[2020-05-06 07:59] VITALS: BP 136/70
[2020-05-06 08:47] LABS: INR 1.08 (0.85-1.17)
--- NOTE | 2020-05-06 12:05 | NUR ---
TRIED TO CONTACT VASCULAR ACCESS AGAIN, LEFT MESSAGE AND PAGED OVERHEAD. WILL CONTINUE TO TRY TO CONTACT.
--- NOTE | 2020-05-06 12:27 | NUR ---
VASCULAR ACCESS NOT AVAILABLE TODAY, ESTEE AHUJA CONSULTED, PICC LINE ORDERED WITH RADIOLOGY.
[2020-05-06 12:49] LABS: CHOL - HDL RATIO 4.5 ratio (2.3-4.1); LDL-HDL RATIO 2.6 ratio (1.5-3.5)
--- NOTE | 2020-05-06 16:45 | NUR ---
CVL PLACED AT BEDSIDE, RIGHT JUGULAR, PT TOLERATED WELL. BED LOW, CL IN REACH.
[2020-05-06 16:49] VITALS: BP 132/86
--- NOTE | 2020-05-06 19:00 | NUR ---
BEDSIDE REPORT RECEIVED AND CARE OF PT ASSUMED. PT SITTING UP IN HIGH HAYWARD'S POSITION VISITING WITH FAMILY MEMBER. RIGHT JUGLAR CENTRAL LINE PATENT WITH NS INFUSING AT 100 ML/HR. O2 IN USE VIA HIGH FLOW NC AT 10 L. TELEMETRY IN USE AND READING SR AT THIS ASSESSMENT. BED ALARM IN USE.
[2020-05-06 20:00] VITALS: BP 140/53
--- NOTE | 2020-05-06 21:11 | NUR ---
HS MEDICATIONS GIVEN. WILL CONTINUE TO MONITOR FOR NEEDS.
--- NOTE | 2020-05-06 22:34 | NUR ---
ALL BEDDING CHANGED DUE TO INCONTINENCE OF URINE. POSITIONED FOR COMFORT.
[2020-05-07 04:00] VITALS: BP 120/60
--- NOTE | 2020-05-07 06:09 | NUR ---
HIBACLENS BATH PERFORMED. CLIPPED GROIN AREA IN PREP FOR PROCEDURE TODAY. CHANGED DRESSIN ON ABDOMEN. PLACED DRESSING WITH ABX OINTMENT OVER SORE ON RIGHT FOREARM. TELEMETRY REPLACED. ALL LINENS AND GOWN CHANGED. POSITIONED FOR COMFORT.
[2020-05-07 06:37] LABS: BASOPHILS 0.3 % (0-2); EOSINOPHILS 1.2 % (0-7); HEMATOCRIT 32.8 % (36.0-48.0); HEMOGLOBIN 10.4 g/dL (12-16); IMMATURE GRANULOCYTES 0.9 % (0-5); LYMPHOCYTES 6.2 % (15-50); MCH 28.5 pg (26.0-34.0); MCHC 31.7 g/dL (31.0-37.0); MCV 89.9 fL (80.0-100.0); MEAN PLATELET VOLUME 10.2 fL (7.4-10.4); MONOCYTES 7.2 % (2-11); NEUTROPHILS 84.2 % (40-80); PLATELET COUNT 241 10x3/uL (130-400); RBC 3.65 10x6/uL (4.00-5.40); RDW 14.9 % (11.5-14.5); WBC 14.9 10x3/uL (4.8-10.8)
[2020-05-07 06:51] LABS: ALBUMIN 2.1 g/dL (3.4-5.0); ANION GAP 12.5 mmol/L (8-16); BILIRUBIN - TOTAL 0.41 mg/dL (0.2-1.3); CALCIUM 8.8 mg/dL (8.5-10.1); CARBON DIOXIDE 25.7 mmol/L (21.0-32.0); CREATININE - SERUM 0.9 mg/dL (0.6-1.3); POTASSIUM - SERUM 3.2 mmol/L (3.5-5.1); PROTEIN - SERUM 6.3 g/dL (6.4-8.2)
--- NOTE | 2020-05-07 07:15 | NUR ---
RECEIVED BEDSIDE REPORT. CVL TO RIGHT JUGULAR, PATENT AND INFUSING, NO REDNESS OR SWELLING. O2 SAT 96%, VIA HFNC AT 4L. BURN ON RIGHT FOREARM, DRSG C/D/I. ABD INCISION, 3 LAP SITES, DRSG C/D/I. EDUCATED PT ON CL AND NEEDS, VERBALIZED UNDERSTANDING. BED LOW, RAILS X2. CL IN REACH, WILL CONTINUE TO MONITOR.
--- NOTE | 2020-05-07 08:15 | NUR ---
PROVIDED PRE OP MEDS AND NITRO PATCHES TO BILAT WRISTS PER ORDER. D/C IV FLUIDS. PT TRANSFERRED TO PHP MAGENTO DEVELOPER VIA BED.
[2020-05-07 08:51] VITALS: BP 145/63
--- NOTE | 2020-05-07 11:25 | NUR ---
PT REC'D TO STRIPPER PRINTED CIRCUIT BOARDS RECOVERY - SEE CATH PROCEDURE CHART.
--- NOTE | 2020-05-07 11:25 | NUR ---
PT REC'D TO RECOVERY ROOM 3 FROM BUSINESS DEVELOPMENT AGENT VIA BED. MONITORS ESTAB. SEE RETAIL PRODUCT ADVISOR. ALARMS ON AND C/L IN REACH.
--- NOTE | 2020-05-07 11:40 | NUR ---
PT REC'D TO RECOVERY ROOM 3 VIA BED FROM ICER MACHINE. MONITORS ESTAB. DAUGHTER AT BS. SEE FILM RENTAL CLERK. ALARMS ON AND C/L IN REACH.
--- NOTE | 2020-05-07 11:40 | NUR ---
R GROIN SITE SOFT, NO S/S BLEEDING OR HEMATOMA. R WRIST SITE C/D/I, NO S/S BLEEDING OR SWELLING. PPP X 4. VSS. DAUGHTER AT BS.
--- NOTE | 2020-05-07 12:10 | NUR ---
VSS. R WRIST SITE C/D/I. R GROIN SITE SOFT, NO S/S BLEEDING OR HEMATOMA. PULSES PALP AND CAP REFILL WNL.
--- NOTE | 2020-05-07 12:25 | NUR ---
5 CC AIR REMOVED FROM Z BAND, NO S/S BLEEDING OR SWELLING. VSS. WILL CONT CLOSE MONITORING. VSS. DAUGHTER AT BS.
--- NOTE | 2020-05-07 12:40 | NUR ---
R GROIN SITE SOFT, NO S/S BLEEDING OR HEMATOMA, BEGIN ELEVATING HOB. TOTAL 7CC AIR REMOVED FROM Z BAND, NO S/S BLEEDING OR HEMATOMA. VSS. PT ALERT, SLIGHT CONFUSION NOTED, ZACHERY EQUALLY. C/L IN REACH.
--- NOTE | 2020-05-07 12:55 | NUR ---
ALL AIR REMOVED FROM Z BAND, NO S/S BLEEDING OR HEMATOMA. Z BAND OFF AND DSG APPLIED - ARM BOARD ON. R GROIN SITE SOFT, NO S/S BLEEDING OR HEMATOMA. PULSES PALP. VSS.
--- NOTE | 2020-05-07 13:08 | NUR ---
REPORT CALLED TO SERGIO, PT TRANSFERRED TO ROOM 2227 VIA BED. DAUGHTER WITH PT.
--- NOTE | 2020-05-07 13:54 | MORECARE ---
CASE MANAGEMENT DISCHARGE SUMMARY PATIENT: DEXTER SO UNIT: [id number] ADM DATE: 05/01/20 AGE: 69 : 49 SEX: F ROOM/BED: D.2227 AUTHOR: THIERRY,DOC PHYSICIAN: REFERRING PHYSICIAN: SOM HOOPER MD DATE OF SERVICE: 05/07/20 Discharge Plan Patient Name: DEXTER SO Facility: [facility]:[place] : 1950 Planned Disposition: Inpatient Rehab Anticipated Discharge Date: Discharge Date: Expected LOS: Initial Reviewer: [id number] Initial Review Date: 05/01/2020 Generated: 05/07/20 2:53 pm Comments DCP- Discharge Planning Updated by [id number]: Yasmin Camilo on 05/07/20 12:[address] Patient Name: DEXTER SO Admission Status: Elective Accout number: [id number] Admission Date: 05-01-2020 : 1950 Admission Diagnosis:POLYP OF COLON Attending: SOM HOOPER Current LOS: 6 Anticipated DC Date: Planned Disposition: Inpatient Rehab Primary Insurance: MEDICARE A & B Discharge Planning Comments: CM met with patient AND DANIEL SAXENA at bedside after explaining CM role and obtaining verbal consent. CM discussed availability / needs of home health, REHAB and medical equipment. PATIENT WOULD LIKE [facility] AT [facility] WHEN STABLE FOR DISCHARGE. STATES SHE JUST HAD A HEART CATH TODAY. I WILL FAX REFERRAL TO [facility]. Flame Cutter: Yasmin Camilo DCPIA - Discharge Planning Initial Assessment Updated by [id number]: Yasmin Camilo on 05/07/20 1:50 pm * Is the patient Alert and Oriented? Yes * PCP LIZZETH * [facility]acy [facility] * Preadmission Environment Assisted Living * Facility Name [facility] * ADLs Independent * Other Equipment CANE, WALKER * List name and contact numbers for known caregivers / representatives who currently or will assist patient after discharge: ODESSA SANCHEZ, * Community resources currently utilized Assisted Living * Additional services required to return to the preadmission environment? Yes * Has this patient been hospitalized within the prior 30 days at any hospital? No External Providers External Provider: [facility] Next Contact Date: Service Request Date: Service Type: Resolution: Reviewer: Comments: Patient Name: DEXTER SO Page 01138 at 1354 All edits/amendments must be made on the electronic document DICTATION DATE: 05/07/20 1358 FISH BONING MACHINE FEEDER: CANDIS 05/07/20 1353 RPT#: [id number] DC DATE: STATUS: ADM IN [facility] [address] [place] [address] END OF REPORT
--- NOTE | 2020-05-07 15:18 | NUR ---
Nutrition Follow-up: Chart reviewed. Patient s/o colon resection 05/01/20. Scheduled for heart cath today. Noted pt having some confusion per EMR. Diet: Regular Mech Soft with Ground Meat, swallowing precautions PO intake: 0-25% x 3 meals yesterday Last BM: 05/07/20. Wt: 177# (05/02/20), no new weight Meds noted: coumadin, NS@100. Labs noted: K 3.2(L). Recommend: -New weight -Continue PO diet per SINGING TEACHER recommendations -Encourage PO intake at meal times -Will add Ensure TID with meals to diet order -MD may consider adding appetite stimulant as medically feasible RD following.
[2020-05-07 18:09] VITALS: BP 122/82
[2020-05-07 20:00] VITALS: BP 166/79
--- NOTE | 2020-05-08 00:49 | NUR ---
I have reviewed this patient and I concur with the Shift Assessment completed by the Licensed Practical Nurse today this shift.
[2020-05-08 04:00] VITALS: BP 164/79
[2020-05-08 06:04] LABS: BASOPHILS 0.3 % (0-2); EOSINOPHILS 1.9 % (0-7); HEMATOCRIT 32.7 % (36.0-48.0); HEMOGLOBIN 10.4 g/dL (12-16); IMMATURE GRANULOCYTES 1.5 % (0-5); LYMPHOCYTES 6.8 % (15-50); MCH 28.7 pg (26.0-34.0); MCHC 31.8 g/dL (31.0-37.0); MCV 90.3 fL (80.0-100.0); MEAN PLATELET VOLUME 10.1 fL (7.4-10.4); MONOCYTES 7.4 % (2-11); NEUTROPHILS 82.1 % (40-80); PLATELET COUNT 260 10x3/uL (130-400); RBC 3.62 10x6/uL (4.00-5.40); RDW 14.8 % (11.5-14.5); WBC 15.5 10x3/uL (4.8-10.8)
[2020-05-08 06:41] LABS: INR 1.08 (0.85-1.17); PROTIME 13.9 SECONDS (11.6-15.0)
[2020-05-08 06:42] LABS: ALBUMIN 2.1 g/dL (3.4-5.0); ANION GAP 12.1 mmol/L (8-16); BILIRUBIN - TOTAL 0.39 mg/dL (0.2-1.3); CALCIUM 8.7 mg/dL (8.5-10.1); CARBON DIOXIDE 25.2 mmol/L (21.0-32.0); CREATININE - SERUM 0.9 mg/dL (0.6-1.3); MAGNESIUM - SERUM 1.9 mg/dL (1.8-2.4); POTASSIUM - SERUM 3.3 mmol/L (3.5-5.1); PROTEIN - SERUM 6.3 g/dL (6.4-8.2)
[2020-05-08 07:58] VITALS: BP 146/80
--- NOTE | 2020-05-08 10:35 | MORECARE ---
CASE MANAGEMENT DISCHARGE SUMMARY PATIENT: DEXTER SO UNIT: [id number] ADM DATE: 05/01/20 AGE: 69 : 49 SEX: F ROOM/BED: D.2227 AUTHOR: THIERRY,DOC PHYSICIAN: REFERRING PHYSICIAN: SOM HOOPER MD DATE OF SERVICE: 05/08/20 Discharge Plan Patient Name: DEXTER SO Facility: [facility]:[place] : 1950 Planned Disposition: Inpatient Rehab Anticipated Discharge Date: Discharge Date: Expected LOS: Initial Reviewer: [id number] Initial Review Date: 05/01/2020 Generated: 05/08/20 11:35 am Comments DCP- Discharge Planning Updated by [email or web address]: Yasmin Camilo on 05/08/20 9:[address] Patient Name: DEXTER SO Admission Status: Elective Accout number: [id number] Admission Date: 05-01-2020 : 1950 Admission Diagnosis:POLYP OF COLON Attending: SOM HOOPER Current LOS: 7 Anticipated DC Date: Planned Disposition: Inpatient Rehab Primary Insurance: MEDICARE A & B Discharge Planning Comments: CM SPOKE WITH WILMA AT [facility] AND THEY WILL ACCEPT THIS PATIENT TO THEIR [facility] EARLY TODAY. I HAVE FAXED UPDATE. WHEN PATIENT IS STABLE FOR DISCHARGE I WILL SET UP [place] FLOOR SANDER DATE AND TIME. High Wire Artist: Yasmin Camilo DCP- Discharge Planning Updated by [email or web address]: Yasmin Camilo on 05/07/20 12:[address] Patient Name: DEXTER SO Admission Status: Elective Accout number: [id number] Admission Date: 05-01-2020 : 1950 Admission Diagnosis:POLYP OF COLON Attending: SOM HOOPER Current LOS: 6 Anticipated DC Date: Planned Disposition: Inpatient Rehab Primary Insurance: MEDICARE A & B Discharge Planning Comments: CM met with patient AND DAUGHTER ODESSA at bedside after explaining CM role and obtaining verbal consent. CM discussed availability / needs of home health, REHAB and medical equipment. PATIENT WOULD LIKE [facility] AT [facility] WHEN STABLE FOR DISCHARGE. STATES SHE JUST HAD A HEART CATH TODAY. I WILL FAX REFERRAL TO [facility]. High Wire Artist: Yasmin aCmilo DCPIA - Discharge Planning Initial Assessment Updated by [email or web address]: Yasmin Camilo on 05/07/20 1:50 pm * Is the patient Alert and Oriented? Yes * PCP LIZZETH * Pharmacy [facility] * Preadmission Environment Assisted Living * Facility Name [facility] * ADLs Independent * Other Equipment CANE, WALKER * List name and contact numbers for known caregivers / representatives who currently or will assist patient after discharge: DAUGHTERODESSA, * Community resources currently utilized Assisted Living * Additional services required to return to the preadmission environment? Yes * Has this patient been hospitalized within the prior 30 days at any hospital? No Last DP export: 05/07/20 12:54 p Patient Name: DEXTER SO Page 63064 at 1035 All edits/amendments must be made on the electronic document DICTATION DATE: 05/08/20 1035 CREATIVE SERVICES COORDINATOR: CANDIS 05/08/20 1035 RPT#: [id number] DC DATE: STATUS: ADM IN [facility] [address] [place] [address] END OF REPORT
[2020-05-08 11:38] VITALS: BP 150/68
--- NOTE | 2020-05-08 13:42 | NUR ---
I have reviewed this patient and I concur with the Shift Assessment completed by the Licensed Practical Nurse today this shift.
--- NOTE | 2020-05-08 14:57 | NUR ---
PT DAUGHTER CONCERNED IN REGARDS TO PT WBC ELEVATED AND PT SEEMS TO BE A LITTLE BIT MORE CONFUSED THIS AFTERNOON. PT TEMP AT 1 WAS 98.9, PT STATES SHE IS VERY TIRED, EXPLAINED TO DAUGHTER WILL KEEP EYE ON PT TEMP AND LABS AND CALL IF SHE GETS ANY WORSE THAN WHERE SHE IS NOW. HOSPITALIST ORDERED ABX TO BE STARTED, CONTINUE WITH PLAN OF CARE
[2020-05-08 16:37] VITALS: BP 141/58
--- NOTE | 2020-05-08 16:55 | OP ---
PATIENT NAME: DEXTER SO MEDICAL RECORD: [id number] :[birth year] LOCATION:[id number] ADMISSION DATE:05/01/20 SURGEON: RJ DISLA MD DATE OF OPERATION: 05/07/2020 PROCEDURE: Left heart catheterization, selective coronary angiography, right radial and femoral artery approach. CATHETERS: Radial sheath and 5-Dominican sheath. The procedure was well tolerated. The patient returned to the palacio. Sheath removed. ExoSeal device and TR band placed. FINDINGS: Left ventriculography in 30-degree REGAN view: Normal wall motion and normal systolic function. CORONARY ANATOMY: LEFT MAIN: Free of disease. LAD: Free of disease in the diagonal system. CIRCUMFLEX: Free of disease in the marginal system. RIGHT CORONARY ARTERY: This is very anterior located. We were unable to engage this through the wrist and had to go femorally; however, this showed a large dominant right. IMPRESSION: Essentially normal coronary arteries, normal LV function. NTS:[id number] Voice Confirmation ID: [id number] DOCUMENT ID: [id number] RJ DISLA MD at 1655 CC: [id number] DICTATION DATE: 05/07/20 1118 DIRECTOR OF ENROLLMENT: 05/07/20 1801 ADM IN [place] [id number] [place] [id number]
[2020-05-08 17:17] LABS: CHOL - HDL RATIO 4.3 ratio (2.3-4.1); LDL-HDL RATIO 2.7 ratio (1.5-3.5)
--- NOTE | 2020-05-08 18:44 | NUR ---
RULA ORDERED TO HAVE CAROTID DOPPLER DONE, PER U/S JJ ZUNIGA, UNABLE TO DO DOPPLER DUE TO RT IJ CVL. WILL PAGE RIVERA FOR FURTHER ORDERS
--- NOTE | 2020-05-08 19:25 | NUR ---
CDS WAS ORDERED BY DR TEE. PT HAS RIGHT NECK CVL LINE AND BANDAGES. UNABLE TO DO CAROTID THROUGH OR AROUND BANDAGES. TALKED TO SILVANO STORM WHO SAID TO CNX FOR NOW AND SHE WOULD TALK TO DR TEE IN AM. FLORIN SANTOYOMS
[2020-05-08 20:00] VITALS: BP 173/78
--- NOTE | 2020-05-08 22:55 | NUR ---
I have reviewed this patient and I concur with the Shift Assessment completed by the Licensed Practical Nurse today this shift.
[2020-05-09 04:00] VITALS: BP 139/58
[2020-05-09 06:25] LABS: BASOPHILS 0.4 % (0-2); EOSINOPHILS 2.2 % (0-7); HEMATOCRIT 32.9 % (36.0-48.0); HEMOGLOBIN 10.5 g/dL (12-16); LYMPHOCYTES 8.6 % (15-50); MCH 28.8 pg (26.0-34.0); MCHC 31.9 g/dL (31.0-37.0); MCV 90.4 fL (80.0-100.0); MEAN PLATELET VOLUME 10.5 fL (7.4-10.4); MONOCYTES 6.6 % (2-11); NEUTROPHILS 80.2 % (40-80); PLATELET COUNT 305 10x3/uL (130-400); RBC 3.64 10x6/uL (4.00-5.40); RDW 14.9 % (11.5-14.5); WBC 13.8 10x3/uL (4.8-10.8)
[2020-05-09 06:37] LABS: INR 1.16 (0.85-1.17); PROTIME 14.8 SECONDS (11.6-15.0)
[2020-05-09 06:49] LABS: ALBUMIN 2.1 g/dL (3.4-5.0); ANION GAP 12.9 mmol/L (8-16); BILIRUBIN - TOTAL 0.3 mg/dL (0.2-1.3); CALCIUM 8.6 mg/dL (8.5-10.1); CARBON DIOXIDE 24.4 mmol/L (21.0-32.0); MAGNESIUM - SERUM 1.9 mg/dL (1.8-2.4); POTASSIUM - SERUM 3.3 mmol/L (3.5-5.1); PROTEIN - SERUM 6.3 g/dL (6.4-8.2)
[2020-05-09 08:07] VITALS: BP 152/72
[2020-05-09 12:04] VITALS: BP 143/70
--- NOTE | 2020-05-09 12:38 | MORECARE ---
CASE MANAGEMENT DISCHARGE SUMMARY PATIENT: DEXTER SO UNIT: [id number] ADM DATE: 05/01/20 AGE: 69 : 49 SEX: F ROOM/BED: D.2227 AUTHOR: THIERRY,DOC PHYSICIAN: REFERRING PHYSICIAN: SOM HOOPER MD DATE OF SERVICE: 05/09/20 Discharge Plan Patient Name: DEXTER SO Facility: [facility]:[place] : 1950 Planned Disposition: Inpatient Rehab Anticipated Discharge Date: Discharge Date: Expected LOS: Initial Reviewer: [id number] Initial Review Date: 05/01/2020 Generated: 05/09/20 1:37 pm Comments DCP- Discharge Planning Updated by [id number]: Yasmin Camilo on 05/09/20 11:[address] Patient Name: DEXTER SO Admission Status: Elective Accout number: [id number] Admission Date: 05-01-2020 : 1950 Admission Diagnosis:POLYP OF COLON Attending: SOM HOOPER Current LOS: 8 Anticipated DC Date: Planned Disposition: Inpatient Rehab Primary Insurance: MEDICARE A & B Discharge Planning Comments: CURRENT CLINICALS FAXED TO [facility] AND CURRENT MAR. ANTICIPATE DC TO [facility] TODAY IF OKAY WITH ALL PHYSICIANS. Payer Specialist: Yasmin Camilo DCP- Discharge Planning Updated by [id number]: Yasmin Camilo on 05/08/20 9:[address] Patient Name: DEXTER SO Admission Status: Elective Accout number: [id number] Admission Date: 05-01-2020 : 1950 Admission Diagnosis:POLYP OF COLON Attending: SOM HOOPER Current LOS: 7 Anticipated DC Date: Planned Disposition: Inpatient Rehab Primary Insurance: MEDICARE A & B Discharge Planning Comments: CM SPOKE WITH WILMA AT [facility] AND THEY WILL ACCEPT THIS PATIENT TO THEIR [facility] TODAY. I HAVE FAXED UPDATE. WHEN PATIENT IS STABLE FOR DISCHARGE I WILL SET UP ORACLE SOA DEVELOPER DATE AND TIME. Payer Specialist: Yasmin Camilo DCP- Discharge Planning Updated by [email or web address]: Yasmin Camilo on 05/07/20 12:[address] Patient Name: DEXTER SO Admission Status: Elective Accout number: [id number] Admission Date: 05-01-2020 : 1950 Admission Diagnosis:POLYP OF COLON Attending: SOM HOOPER Current LOS: 6 Anticipated DC Date: Planned Disposition: Inpatient Rehab Primary Insurance: MEDICARE A & B Discharge Planning Comments: CM met with patient AND DAUGHTER ODESSA at bedside after explaining CM role and obtaining verbal consent. CM discussed availability / needs of home health, REHAB and medical equipment. PATIENT WOULD LIKE [facility] AT [facility] WHEN STABLE FOR DISCHARGE. STATES SHE JUST HAD A HEART CATH TODAY. I WILL FAX REFERRAL TO [facility]. Payer Specialist: Yasmin Camilo DCPIA - Discharge Planning Initial Assessment Updated by [id number]: Yasmin Camilo on 05/07/20 1:50 pm * Is the patient Alert and Oriented? Yes * PCP LIZZETH * Pharmacy [facility] * Preadmission Environment Assisted Living * Facility Name [facility] * ADLs Independent * Other Equipment CANE, WALKER * List name and contact numbers for known caregivers / representatives who currently or will assist patient after discharge: DAUGHTERODESSA, * Community resources currently utilized Assisted Living * Additional services required to return to the preadmission environment? Yes * Has this patient been hospitalized within the prior 30 days at any hospital? No Last DP export: 05/08/20 9:35 a Patient Name: DEXTER SO Page 68220 at 1238 All edits/amendments must be made on the electronic document DICTATION DATE: 05/09/20 1237 BUSINESS CONTINUITY CONSULTANT: CANDIS 05/09/20 1237 RPT#: [id number] DC DATE: STATUS: ADM IN [facility] [address] [place] [address] END OF REPORT
--- NOTE | 2020-05-09 13:45 | NUR ---
CALLED PT DAUGHTER ODESSA IN REGARDS TO PT DC TO [facility]. LEFT MESSAGE FOR CALL BACK. NO NEEDS VOICED BY PT, CONTINUE WITH PLAN OF CARE
--- NOTE | 2020-05-09 13:48 | NUR ---
RECEIVED CALL BACK FROM ODESSA AND EXPLAINED THAT PT IS BEING DC TODAY, NO OTHER NEEDS AT THIS TIME. CONTINUE WITH PLAN OF CARE
[2020-05-09] MEDS ORDERED: HYDROCODON-ACE1 EAC7 PO ×2 (14:09→14:58)
--- NOTE | 2020-05-09 18:37 | OP ---
PATIENT NAME: DEXTER SO MEDICAL RECORD: [id number] :[birth year] LOCATION:D.MS [id number] ADMISSION DATE:05/01/20 SURGEON: SOM HOOPER MD DATE OF OPERATION: 05/06/2020 PREOPERATIVE DIAGNOSES: 1. Cerebrovascular accident. 2. Non-Q-wave myocardial infarction. 3. Lack of venous access. POSTOPERATIVE DIAGNOSES: 1. Cerebrovascular accident. 2. Non-Q-wave myocardial infarction. 3. Lack of venous access. PROCEDURE: Insertion of right internal jugular triple lumen central venous catheter. SURGEON: Som Hooper MD PAPER COATING SUPERVISOR: Anusha Cohen APRN A consent form was signed. OPERATIVE COURSE: The patient was seen in her room. The entire procedure was performed in the presence of a female nurse. The right neck was sterilely prepped and draped. Local anesthetic was used to infiltrate the skin and subcutaneous tissues at the base of the right neck. The right internal jugular vein was percutaneously accessed in an antegrade fashion. Guidewire was passed easily. A small skin debra was accomplished. A vessel dilator was used to dilate the subcutaneous tract. A 16-cm triple lumen central venous catheter was inserted in the thumb. It was sutured in place times 3. All lumens flushed easily and aspirated dark, nonpulsatile blood. Stat portable chest x-ray is pending. TRANSINT:[id number] Voice Confirmation ID: [id number] DOCUMENT ID: [id number] SOM HOOPER MD at 1837 CC: [id number] DICTATION DATE: 05/06/20 180 LABOR CUSTODIAN: 05/07/20 0035 DIS IN 05/09/20 [place] [id number] [place] [address]
--- NOTE | 2020-05-10 09:21 | MORECARE ---
CASE MANAGEMENT DISCHARGE SUMMARY PATIENT: DEXTER SO UNIT: [id number] ADM DATE: 05/01/20 AGE: 69 : 49 SEX: F ROOM/BED: D.2227 AUTHOR: THIERRY,DOC PHYSICIAN: REFERRING PHYSICIAN: SOM HOOPER MD DATE OF SERVICE: 05/10/20 Discharge Plan Patient Name: DEXTER SO Facility: [facility]:[place] : 1950 Planned Disposition: Inpatient Rehab Anticipated Discharge Date: Discharge Date: 05/09/2020 Expected LOS: Initial Reviewer: [id number] Initial Review Date: 05/01/2020 Generated: 05/10/20 10:21 am Comments DCP- Discharge Planning Updated by [id number]: Yasmin Camilo on 05/09/20 11:[address] Patient Name: DEXTER SO Admission Status: Elective Accout number: [id number] Admission Date: 05-01-2020 : 1950 Admission Diagnosis:POLYP OF COLON Attending: SOM HOOPER Current LOS: 8 Anticipated DC Date: Planned Disposition: Inpatient Rehab Primary Insurance: MEDICARE A & B Discharge Planning Comments: CURRENT CLINICALS FAXED TO [facility] AND CURRENT MAR. ANTICIPATE DC TO [facility] TODAY IF OKAY WITH ALL PHYSICIANS. Blood Typer: Yasmin Camilo DCP- Discharge Planning Updated by [email or web address]: Yasmin Camilo on 05/08/20 9:[address] Patient Name: DEXTER SO Admission Status: Elective Accout number: [id number] Admission Date: 05-01-2020 : 1950 Admission Diagnosis:POLYP OF COLON Attending: SOM HOOPER Current LOS: 7 Anticipated DC Date: Planned Disposition: Inpatient Rehab Primary Insurance: MEDICARE A & B Discharge Planning Comments: CM SPOKE WITH WILMA AT [facility] AND THEY WILL ACCEPT THIS PATIENT TO THEIR [facility] EARLY TODAY. I HAVE FAXED UPDATE. WHEN PATIENT IS STABLE FOR DISCHARGE I WILL SET UP DESIGNATED BROKER DATE AND TIME. Blood Typer: Yasmin Camilo DCP- Discharge Planning Updated by [email or web address]: Yasmin Camilo on 05/07/20 12:[address] Patient Name: DEXTER SO Admission Status: Elective Accout number: [id number] Admission Date: 05-01-2020 : 1950 Admission Diagnosis:POLYP OF COLON Attending: SOM HOOPER Current LOS: 6 Anticipated DC Date: Planned Disposition: Inpatient Rehab Primary Insurance: MEDICARE A & B Discharge Planning Comments: CM met with patient AND DAUGHTER ODESSA at bedside after explaining CM role and obtaining verbal consent. CM discussed availability / needs of home health, REHAB and medical equipment. PATIENT WOULD LIKE [facility] AT [facility] WHEN STABLE FOR DISCHARGE. STATES SHE JUST HAD A HEART CATH TODAY. I WILL FAX REFERRAL TO [facility]. Blood Typer: Yasmin Camilo DCPIA - Discharge Planning Initial Assessment Updated by [id number]: Yasmin Camilo on 05/07/20 1:50 pm * Is the patient Alert and Oriented? Yes * PCP LIZZETH * Pharmacy [facility] * Preadmission Environment Assisted Living * Facility Name [facility] * ADLs Independent * Other Equipment CANE, WALKER * List name and contact numbers for known caregivers / representatives who currently or will assist patient after discharge: DAUGHTERODESSA, * Community resources currently utilized Assisted Living * Additional services required to return to the preadmission environment? Yes * Has this patient been hospitalized within the prior 30 days at any hospital? No Coverage Notice Reviewer: [id number] - Yasmin Camilo Notice Issued Date-Time: 05/09/2020 13:58 Notice Type: IM Discharge Notice Notice Delivered To: Patient Relationship to Patient: Repairer Cylinder Heads Name: Delivery Method: HAND - Hand Delivered Leticia Days: Prior Verbal Notification: Recipient Understood Notice: Yes Recipient Signature: Yes Med Rec Note Co-signed by Attending: Coverage Notice Comment: Last DP export: 05/09/20 11:38 a Patient Name: DEXTER SO Page 24575 at 0921 All edits/amendments must be made on the electronic document DICTATION DATE: 05/10/20920 ORTHOPEDIC TECH: CANDIS 05/10/20920 RPT#: [id number] DC DATE:05/09/20 STATUS: DIS IN [facility] [address] [place] [address] END OF REPORT
== END 2020-05-09 17:06 | DRG 329 ==
LOC: D.MS 07:30 → D.SDCHOLD 07:30 → D.MS 18:49
PROVIDERS: Anesthesiology; Family Medicine; Family Medicine Adult Medicine; Internal Medicine Interventional Cardiology; ADMIT Surgery; ATTEND Surgery
PROC: 0DTF4ZZ Resection of Right Large Intestine, Percutaneous Endoscopic Approach (ICD-10-PCS; principal; 2020-05-01 12:45)
PROC: B2111ZZ Fluoroscopy of Multiple Coronary Arteries using Low Osmolar Contrast (ICD-10-PCS; 2020-05-07)
PROC: B2151ZZ Fluoroscopy of Left Heart using Low Osmolar Contrast (ICD-10-PCS; 2020-05-07)
PROC: 4A023N7 Measurement of Cardiac Sampling and Pressure, Left Heart, Percutaneous Approach (ICD-10-PCS; 2020-05-07)
DX: K63.5 Polyp of colon (principal); I63.89 Other cerebral infarction; G93.41 Metabolic encephalopathy; I21.4 Non-ST elevation (NSTEMI) myocardial infarction; I69.351 Hemiplegia and hemiparesis following cerebral infarction affecting right dominant side; I10 Essential (primary) hypertension; R00.0 Tachycardia, unspecified; D72.829 Elevated white blood cell count, unspecified; I48.0 Paroxysmal atrial fibrillation; F41.9 Anxiety disorder, unspecified; M19.90 Unspecified osteoarthritis, unspecified site; D64.9 Anemia, unspecified; R32 Unspecified urinary incontinence; I69.320 Aphasia following cerebral infarction; R06.89 Other abnormalities of breathing